=== PATIENT | female | born 1985 | race Caucasian/White ===

== ENCOUNTER 2022-07-24 13:10 | Outpatient (CLI) | payer BC, SELFPAY | END 2022-07-24 13:11 | disposition home or self-care (01) | PROVIDERS: PCP Family Medicine; Visit Provider Family Medicine | DX: M47.816 Spondylosis without myelopathy or radiculopathy, lumbar region (principal) | CPT/HCPCS: 64493; J0702 ==

== ENCOUNTER 2023-05-28 10:31 | Outpatient (CLI) | payer BC, SELFPAY | END 2023-05-28 10:32 | disposition home or self-care (01) | LOC: INJ CL 10:32 | PROVIDERS: PCP Family Medicine; Visit Provider Family Medicine | DX: M47.816 Spondylosis without myelopathy or radiculopathy, lumbar region (principal) | CPT/HCPCS: 64493; 64494 ==